=== PATIENT | female | born 1965 | race Caucasian/White ===

== ENCOUNTER 2018-04-27 10:00 | Emergency (ER) | payer BC ==
[2018-04-27 10:02] VITALS: BMI 32.9
[2018-04-27 10:03] VITALS: RESP 17; TEMP 98.1
--- NOTE | 2018-04-27 12:42 | ED PDOC ---
HPI: General Adult Time Seen by Provider: 04/27/18 10:10 Chief Complaint (Nursing): Female Genitourinary Chief Complaint (Provider): blood in urine and lower flank pain History Per: Patient History/Exam Limitations: no limitations Onset/Duration Of Symptoms: Days Current Symptoms Are (Timing): Still Present Additional Complaint(s): 53 year old female with a PMHx of high cholesterol, anxiety and high blood pressure presents to the ER for an evaluation of blood in urine and lower flank pain onset for 2 days. Patient reports she had blood work done at Dr. Huang office today which showed small blood in urine and no leukocytes. She also finished her Macrobid for UTI. she was told by his office that if she has pain she should go to the ER. pt denies fever.vomiting diarrhea. PMD: Agustin Fofana Past Medical History Reviewed: Historical Data, Nursing Documentation, Vital Signs Vital Signs: Last Vital Signs Temp 98.1 F 04/27/18 10:01 Pulse 82 04/27/18 14:08 Resp 17 04/27/18 10:01 BP 137/82 04/27/18 14:08 Pulse Ox 98 04/27/18 18:34 - Medical History PMH: Anxiety, Gastritis, HTN, Hypercholesterolemia, Hyperlipidemia - Surgical History Surgical History: No Surg Hx - Family History Family History: States: Unknown Family Hx - Social History Current smoker - smoking cessation education provided: No Alcohol: Social Drugs: Denies - Home Medications Home Medications: Ambulatory Orders Medication Instructions Recorded Ciprofloxacin HCl [Cipro] 500 mg PO BID #14 tab 04/27/18 - Allergies Allergies/Adverse Reactions: Allergies Allergy/AdvReac Type Severity Reaction Status Date / Time No Known Allergies Allergy Verified 04/27/18 10:08 Review of Systems ROS Statement: Except As Marked, All Systems Reviewed And Found Negative Genitourinary Female: Positive for: Hematuria Musculoskeletal: Positive for: Back Pain (left flank) Psych: Negative for: Suicidal ideation (homicidal ideation ) Physical Exam - Reviewed Nursing Documentation Reviewed: Yes Vital Signs Reviewed: Yes - Physical Exam Appears: Positive for: Non-toxic, No Acute Distress Head Exam: Positive for: ATRAUMATIC, NORMAL INSPECTION, NORMOCEPHALIC Skin: Positive for: Normal Color, Warm, Dry Eye Exam: Positive for: EOMI, Normal appearance, PERRL ENT: Positive for: Normal ENT Inspection Neck: Positive for: Normal, Painless ROM, Supple. Negative for: Decreased ROM Cardiovascular/Chest: Positive for: Regular Rate, Rhythm. Negative for: Murmur Respiratory: Positive for: Normal Breath Sounds. Negative for: Decreased Breath Sounds, Wheezing, Respiratory Distress Gastrointestinal/Abdominal: Positive for: Normal Exam, Soft. Negative for: Tenderness, Guarding, Rebound Back: Positive for: L CVA Tenderness (mild) Extremity: Positive for: Normal ROM. Negative for: Tenderness, Pedal Edema, Deformity Neurologic/Psych: Positive for: Alert, Oriented (x3). Negative for: Motor/ Sensory Deficits - ECG O2 Sat by Pulse Oximetry: 98 (RA) Pulse Ox Interpretation: Normal Medical Decision Making Medical Decision Making: Time: 1120 Initial Plan: flank pain, dysuria rule out uti,, kidney stone --Abd & Pelvis w/o PO or IV Contrast CT --Reevaluation Time: 1308 PROCEDURE: CT Abdomen and Pelvis without intravenous contrast HISTORY: abd pain COMPARISON: None. TECHNIQUE: Without contrast. Contrast dose: None Radiation dose: Total exam DLP = 743 mGy-cm. This CT exam was performed using one or more of the following dose reduction techniques: Automated exposure control, adjustment of the mA and/or kV according to patient size, and/or use of iterative reconstruction technique. FINDINGS: LOWER THORAX: Unremarkable. LIVER: Unremarkable. No gross lesion or ductal dilatation. GALLBLADDER AND BILE DUCTS: Unremarkable. PANCREAS: Unremarkable. No gross lesion or ductal dilatation. SPLEEN: Unremarkable. ADRENALS: Unremarkable. No mass. KIDNEYS AND URETERS: Unremarkable. No hydronephrosis. No solid mass. VASCULATURE: Few phleboliths. . No aortic aneurysm. BOWEL: Stool retention -moderate. No obstruction. No gross mural thickening. APPENDIX: Unremarkable. Normal appendix. PERITONEUM: Unremarkable. No free fluid. No free air. LYMPH NODES: Unremarkable. No enlarged lymph nodes. BLADDER: Unremarkable. REPRODUCTIVE: Unremarkable. BONES: No acute fracture. OTHER FINDINGS: Small ventral fat only containing periumbilical hernia. No bowel containing hernias noted. IMPRESSION: Small ventral fat only containing periumbilical hernia. No bowel containing hernias noted. Moderate stool retention. No bowel obstruction. No gross diverticulitis or appendicitis. Otherwise unremarkable exam. .................... pt made aware of CT findings. pt requesting food and states feels better at this time. pt recently on macrobid so will give po cipro for hematuria. rest of labs reviewed from today accessed through the records i told pt to follow up with dr fofana in 2 days for review of remainder of labs and for further treatment/potential referral to urologist Upon provider evaluation patient is medically stable, and requires no further treatment in the ED at this time. Patient will be discharged. Counseling was provided and all questions were answered regarding diagnosis and need for follow up with PMD. There is agreement to discharge plan. Return if symptoms persist or worsen. Scribe Attestation: Documented by Wan Ryder, acting as a scribe for Leandro Estrella MD Provider Scribe Attestation: All medical record entries made by the Scribe were at my direction and personally dictated by me. I have reviewed the chart and agree that the record accurately reflects my personal performance of the history, physical exam, medical decision making, and the department course for this patient. I have also personally directed, reviewed, and agree with the discharge instructions and disposition. Disposition - Clinical Impression Clinical Impression: Dysuria - Patient ED Disposition Is Patient to be Admitted: No Counseled Patient/Family Regarding: Studies Performed, Diagnosis, Need For Followup - Disposition Disposition: Routine/Home Disposition Time: 13:20 Condition: IMPROVED Additional Instructions: follow up with your dr fofana in 1-2 days for reevaluation and completion of workup return to the ED with any worsening or concerning symptoms Prescriptions: Ciprofloxacin HCl [Cipro] 500 mg PO BID #14 tab Instructions: Dysuria, Adult (DC) Forms: [employer] ([place])
--- NOTE | 2018-04-27 13:10 | CT ---
Date of service: 04/27/2018 PROCEDURE: CT Abdomen and Pelvis without intravenous contrast HISTORY: abd pain COMPARISON: None. TECHNIQUE: Without contrast. Contrast dose: None Radiation dose: Total exam DLP = 743 mGy-cm. This CT exam was performed using one or more of the following dose reduction techniques: Automated exposure control, adjustment of the mA and/or kV according to patient size, and/or use of iterative reconstruction technique. FINDINGS: LOWER THORAX: Unremarkable. LIVER: Unremarkable. No gross lesion or ductal dilatation. GALLBLADDER AND BILE DUCTS: Unremarkable. PANCREAS: Unremarkable. No gross lesion or ductal dilatation. SPLEEN: Unremarkable. ADRENALS: Unremarkable. No mass. KIDNEYS AND URETERS: Unremarkable. No hydronephrosis. No solid mass. VASCULATURE: Few phleboliths. . No aortic aneurysm. BOWEL: Stool retention -moderate. No obstruction. No gross mural thickening. APPENDIX: Unremarkable. Normal appendix. PERITONEUM: Unremarkable. No free fluid. No free air. LYMPH NODES: Unremarkable. No enlarged lymph nodes. BLADDER: Unremarkable. REPRODUCTIVE: Unremarkable. BONES: No acute fracture. OTHER FINDINGS: Small ventral fat only containing periumbilical hernia. No bowel containing hernias noted. IMPRESSION: Small ventral fat only containing periumbilical hernia. No bowel containing hernias noted. Moderate stool retention. No bowel obstruction. No gross diverticulitis or appendicitis. Otherwise unremarkable exam.
[2018-04-27 14:08] VITALS: BP 137/82; PULSE 82
[2018-04-27 18:33] VITALS: O2SAT 98
== END 2018-04-27 14:41 | disposition home or self-care (01) ==
LOC: H.ER 10:00
DX: R30.0 Dysuria (principal); I10 Essential (primary) hypertension; E78.00 Pure hypercholesterolemia, unspecified

== ENCOUNTER 2018-08-13 14:36 | Emergency (ER) | payer BC ==
[2018-08-13 14:36] VITALS: BMI 32.9
--- NOTE | 2018-08-13 15:13 | ED PDOC ---
HPI: Back Time Seen by Provider: 08/13/18 14:49 Chief Complaint (Nursing): Back Pain Chief Complaint (Provider): Back Pain History Per: Patient Additional Complaint(s): Pt is a 53 yo female, PMH of high Cholesterol, presents to ED with c/o lower back pain radiating down left leg x several months, as well as, left sided abdominal pain with intermittent episodes of nausea, vomiting and diarrhea x 2 months. No fever or chills. Pt reports 2 episodes of non bloody, non billious vomiting today and 5 episodes of loose, watery, non bloody stools. Pt reports she is seeing GI, Dr. Landeros, and is scheduled for an Endoscopy at the end of August. Past Medical History Reviewed: Nursing Documentation, Vital Signs Vital Signs: Last Vital Signs Temp 97.9 F 08/13/18 14:41 Pulse 96 H 08/13/18 14:41 Resp 20 08/13/18 14:41 BP 117/72 08/13/18 14:41 Pulse Ox 98 08/13/18 14:41 - Medical History PMH: Anxiety, Gastritis, HTN, Hypercholesterolemia, Hyperlipidemia - Family History Family History: States: Unknown Family Hx - Home Medications Home Medications: Ambulatory Orders Medication Instructions Recorded Ciprofloxacin HCl [Cipro] 500 mg PO BID #14 tab 04/27/18 - Allergies Allergies/Adverse Reactions: Allergies Allergy/AdvReac Type Severity Reaction Status Date / Time No Known Allergies Allergy Verified 08/13/18 14:41 - ECG O2 Sat by Pulse Oximetry: 98 Disposition - Disposition
[2018-08-13] MEDS ORDERED: Sodium Chloride 0.9% 1,000 ML IV STA (15:15)
[2018-08-13] MEDS ORDERED: Iohexol 240 (50 ml) PO ONE (15:17)
[2018-08-13] MEDS ORDERED: Iohexol 240 (50 ml) ONE (15:36)
[2018-08-13 16:20] LABS: BASO # 0.1 K/uL (0.0-0.2); BASO % 1.3 % (0.0-2.0); EOS # 0.2 K/uL (0.0-0.7); EOS % 3.9 % (0.0-4.0); HEMOGLOBIN 13.2 g/dL (12.0-16.0); LYMPH # 2.3 K/uL (1.0-4.3); LYMPH % 56.3 % (20.0-40.0); MEAN CELL VOLUME 92.5 fl (81.0-99.0); MEAN CORPUSCULAR HEMOGLOBIN 30.8 pg (27.0-31.0); MEAN CORPUSCULAR HGB CONC 33.3 g/dL (33.0-37.0); MEAN PLATELET VOLUME 8.8 fl (7.2-11.7); MONO # 0.3 K/uL (0.0-0.8); MONO % 7.9 % (0.0-10.0); NEUT # 1.2 K/uL (1.8-7.0); NEUT % 30.6 % (50.0-75.0); NRBC % 0.2 % (0.0-0.0); RBC 4.29 Mil/uL (3.80-5.20); RED CELL DISTRIBUTION WIDTH 16.2 % (11.5-14.5); WHITE BLOOD COUNT 4.1 K/uL (4.8-10.8)
[2018-08-13 16:35] LABS: AMYLASE 56 U/L (30-110); BLOOD UREA NITROGEN 15 mg/dl (7-17); GFR NON-AFRICAN AMERICAN > 60; LIPASE 98 U/L (23-300)
[2018-08-13 16:43] LABS: SQUAMOUS EPITHIAL 43 /hpf (0-5); URINE BACTERIA MANY (<OCC); URINE BILIRUBIN NEGATIVE (NEGATIVE); URINE BLOOD NEGATIVE (NEGATIVE); URINE COLOR YELLOW (YELLOW); URINE GLUCOSE (UA) NEG (NEGATIVE); URINE LEUKOCYTE ESTERASE NEG Leu/uL (Negative); URINE PROTEIN NEGATIVE (NEGATIVE); URINE UROBILINOGEN 0.2-1.0 mg/dL (0.2-1.0)
[2018-08-13 16:51] LABS: URINE CLARITY CLOUDY (Clear)
[2018-08-13 16:54] VITALS: RESP 18
[2018-08-13 16:59] LABS: ALB/GLOB RATIO 1.1 (1.0-2.1); ALT/SGPT 34 U/L (9-52); AST/SGOT 72 U/L (14-36)
[2018-08-13] MEDS ORDERED: Sodium Chloride 0.9% 50 ML IV ONE (17:59)
[2018-08-13] MEDS ORDERED: Iohexol 300 100 ML IJ ONE (17:59)
[2018-08-13 20:21] VITALS: BP 137/79; PULSE 97; TEMP 98.2; O2SAT 96
--- NOTE | 2018-08-14 11:19 | CT ---
Date of service: 08/13/2018 PROCEDURE: CT Abdomen and Pelvis with contrast HISTORY: Left lower quadrant and flank pain x 2 months COMPARISON: Comparison made with prior CT scan 04/27/2018. TECHNIQUE: Contiguous helical/transaxial sections of the abdomen pelvis performed following oral and intravenous injection of approximately 95 cc Omnipaque 350 contrast material. Additional 2D sagittal and coronal reformats generated. Radiation dose: Total exam DLP = 819.16 mGy-cm. This CT exam was performed using one or more of the following dose reduction techniques: Automated exposure control, adjustment of the mA and/or kV according to patient size, and/or use of iterative reconstruction technique. FINDINGS: LOWER THORAX: Lung there are localized ground-glass opacities and some associated scarring seen in both lung bases including the lingular and middle lobe regions. No evidence of effusion or basilar pneumothorax. Heart size within range of normal. No significant pericardial effusion. Small hiatal hernia. LIVER: Liver is upper limits of normal measuring over 18 cm in CC dimension.. Mild diffuse fatty hepatic infiltration. No obvious hepatic mass collection or calcification. Portal and splenic veins are opacified. GALLBLADDER AND BILE DUCTS: Gallbladder physiologically distended. No evidence of intraluminal gallbladder calculi.. PANCREAS: Unremarkable. No gross lesion or ductal dilatation. SPLEEN: Unremarkable. ADRENALS: No adrenal lesions.. KIDNEYS AND URETERS: Kidneys demonstrate symmetric nephrograms. No evidence of nephrolithiasis or hydronephrosis. No obvious renal masses or collections. VASCULATURE: Unremarkable. No aortic aneurysm. Minimal o aortic atherosclerotic calcification or mural plaque present. BOWEL: Evaluation of the bowel is somewhat limited due to incomplete opacification. Stomach is distended with oral contrast material some food debris and air. Visualized loops of small bowel exhibit relatively normal contour and caliber. No evidence of acute mechanical small bowel obstruction. There is a moderate amount of stool seen within the cecum and ascending as well as proximal transverse colon consistent with fecal retention/constipation. Scattered colonic diverticula present without radiographic evidence of acute diverticulitis. APPENDIX: Normal appendix. PERITONEUM: Unremarkable. No free fluid. No free air. Small fat containing umbilical hernia. LYMPH NODES: Unremarkable. No enlarged lymph nodes. BLADDER: Unremarkable. REPRODUCTIVE: There is a cylindrical low-attenuation structure (fluid attenuation) that measures approximately 4.9 x 1.7 cm which appears to be contiguous with the left uterine from this and adnexa possibly representing dilated fallopian tube; rule out hydrosalpinx. In addition, there is an approximately 4.8 x 2.5 mm elliptical shaped soft tissue mass that is contiguous with the right uterine fundus and cervical region of the uterus. Rule out cervical mass or possibly pedunculated uterine fibroid. Recommend follow-up director learning consultation and pelvic ultrasound. BONES: Mild multilevel degenerative spondylosis of the lower thoracic and lumbar spine. OTHER FINDINGS: None. IMPRESSION: Possible left-sided hydrosalpinx however other ovarian or possibly a uterine pathology not excluded. Recommend follow-up pelvic ultrasound. There is a round/elliptical shaped soft tissue density which appears to be contiguous with the cervix as above. Rule out uterine mass or possibly massive cervical origin. Follow-up director learning consultation is recommended. Borderline hepatomegaly with fatty infiltration. Findings suggest mild localized constipation. Scattered colonic diverticula without radiographic evidence of acute diverticulitis.
--- NOTE | 2018-08-14 20:10 | CARD ---
APPROVED REPORT Date of service: 08/13/2018 EKG Measurement Heart [id number] W[place] 104P-19 [id number] <Conclusion> Sinus rhythm with short [place] Otherwise normal ECG
== END 2018-08-13 20:45 | disposition home or self-care (01) ==
LOC: H.ER 14:36
DX: M54.9 Dorsalgia, unspecified (principal)
CPT/HCPCS: 74177; 80053; 81003; 82150; 83690; 85025; 93005; 96360; 99284; J2270; J2405; J7030; Q9966; Q9967